=== PATIENT | female | born 1945 | race Caucasian/White ===

== ENCOUNTER 2025-04-05 18:00 | Emergency (ER) | payer MEDICARE, OTHER ==
[~2025-04-05] VITALS: Ht 154.9 cm; Wt 54.5 kg
[~2025-04-05 18:00] MED LIST: ASPI-556 PO; ATOR10TA PO; CARV3.1262 PO; HYDR-4072 PO; INSLAN SQ; INSNOV SQ; METO5TAB95 PO
[2025-04-05 18:19] VITALS: BP 166/42; PULSE 84; RESP 18; TEMP 98.9; O2SAT 99
[2025-04-05] MEDS ORDERED: GABA-1181 PO (18:21)
[2025-04-05 19:37] LABS: BASOPHILS % (AUTO) 0.9 % (0.0-2.0); EOSINOPHILS % (AUTO) 1.8 % (1.0-6.0); HEMATOCRIT 36.8 % (36-46); HEMOGLOBIN 12.3 g/dL (12.0-16.0); LYMPHOCYTES # (AUTO) 3.9 K/uL (1.0-4.8); LYMPHOCYTES % (AUTO) 33.2 % (22.0-44.0); MEAN CORPUSCULAR HEMOGLOBIN 30.4 pg (26.0-34.0); MEAN CORPUSCULAR HGB CONC 33.5 G/dL (31.0-37.0); MEAN CORPUSCULAR VOLUME 91 fL (80-100); MONOCYTES # (AUTO) 0.7 K/uL (0.1-1.0); MONOCYTES % (AUTO) 5.8 % (2.0-9.0); NEUTROPHILS # (AUTO) 6.8 K/uL (1.8-7.7); NEUTROPHILS % (AUTO) 58.3 % (40.0-70.0); PLATELET COUNT (AUTO) 234 K/uL (150-450); RED BLOOD CELL COUNT(AUTO) 4.07 MIL/uL (4.00-5.20); RED CELL DISTRIBUTION WIDTH 14.3 % (11.5-14.5); WHITE BLOOD COUNT (AUTO) 11.6 K/uL (4.5-11.0)
[2025-04-05 19:46] LABS: CALCIUM, TOTAL 9.1 mg/dL (8.8-10.5); CREATININE 0.95 mg/dL (0.60-1.30); POTASSIUM 4.4 mmol/L (3.5-5.1)
[2025-04-05 19:57] LABS: LACTIC ACID 1.7 mmol/L (0.4-2.0)
== END 2025-04-05 22:57 | disposition left against medical advice (07) ==
LOC: EMS 18:00
DX: M79.676 Pain in unspecified toe(s) (principal); Z53.21 Procedure and treatment not carried out due to patient leaving prior to being seen by health care provider
CPT/HCPCS: 71045; 80048; 83605; 85025; 99281; 36415-L1; 36415-TC